=== PATIENT | male | born 1955 | race Caucasian/White ===

== ENCOUNTER 2020-06-08 11:02 | Observation (INO) | payer MEDICARE ==
[~2020-06-08 11:02] MED LIST: ASPI-1111 PO; ATOR40TA28 PO; BUME1TAB34 PO; CARV25 PO; CLOP75TA60 PO; LOSA50TA37 PO; METF-960 PO; NIFE30TA98 PO; SODIUM CHLORIDE 0.9% 1,000 ML IV ONE; SODIUM CHLORIDE 0.9% 1,000 ML ONE
[2020-06-08 12:00] LABS: GLUCOMETER DEV NAME(LOC) SDS.; GLUCOSE,POINT OF CARE 277 MG/DL (70-110)
[2020-06-08] MEDS ORDERED: LIDOCAINE/PF 1% 30 ML VIAL ONE ×2 (12:54→13:41)
[2020-06-08] MEDS ORDERED: SODIUM BICARBONATE 50 MEQ/50 ML VIAL ONE (12:54)
[2020-06-08] MEDS ORDERED: IOHEXOL 300 MG/ML 150 ML VIAL ONE (12:55)
[2020-06-08] MEDS ORDERED: HEPARIN SODIUM 1000 UNITS/NS 1,000 ML ONE (12:55)
[2020-06-08 13:19] VITALS: BP 169/79
[2020-06-08] MEDS ORDERED: FentaNYL CITRATE PF 100 MCG/2 ML VIAL ONE ×2 (13:30→14:12)
[2020-06-08] MEDS ORDERED: MIDAZOLAM HCL 2 MG/2 ML VIAL ONE (13:30)
[2020-06-08] MEDS ORDERED: FentaNYL CITRATE PF 100 MCG/2 ML VIAL IVP ONE ×2 (13:45)
[2020-06-08] MEDS ORDERED: MIDAZOLAM HCL 2 MG/2 ML VIAL IVP ONE (13:45)
[2020-06-08] MEDS ORDERED: IOHEXOL 300 MG/ML 150 ML VIAL IARTER ONE (13:45)
[2020-06-08] MEDS ORDERED: HEPARIN SODIUM 1000 UNITS/NS 1,000 ML IARTER ONE (13:45)
[2020-06-08] MEDS ORDERED: LIDOCAINE 1% 30 ML/SOD BICARB 8.4% 4 ML SQ ONE (13:45)
[2020-06-08] MEDS ORDERED: IOHEXOL 300 MG/ML 50 ML VIAL ONE (13:48)
[2020-06-08] MEDS ORDERED: IOHEXOL 300 MG/ML 100 ML VIAL ONE ×2 (13:48→14:30)
[2020-06-08] MEDS ORDERED: NITROGLYCERIN 50 MG/D5% WATER 0 ML ONE (13:48)
[2020-06-08] MEDS ORDERED: VERAPAMIL HCL 2.5 MG/ML 2 ML VIAL ONE (13:49)
[2020-06-08] MEDS ORDERED: HEPARIN SODIUM,PORCINE 5,000 UNITS/ML VIAL IVP ONE (14:00)
[2020-06-08] MEDS ORDERED: TICAGRELOR 90 MG TABLET ONE (14:09)
[2020-06-08] MEDS ORDERED: ASPIRIN 325 MG TABLET ONE (14:09)
[2020-06-08] MEDS ORDERED: NITROGLYCERIN 400 MCG/SUBLINGUAL SPRAY 4.9 GM BOTTLE SL ONE (14:14)
[2020-06-08] MEDS ORDERED: ASPIRIN 325 MG TABLET PO ONE (14:15)
[2020-06-08] MEDS ORDERED: TICAGRELOR 90 MG TABLET PO ONE (14:15)
[2020-06-08] MEDS ORDERED: NITROGLYCERIN 0.4 MG SUBLINGUAL TABLET #25 SL ONE (14:15)
[2020-06-08] MEDS ORDERED: IOHEXOL 300 MG/ML 100 ML VIAL IARTER ONE (14:15)
[2020-06-08 14:36] VITALS: BP 135/73
[2020-06-08] MEDS ORDERED: BISACODYL 10 MG RECTAL RECTAL SUPPOSITORY PR PRN (14:45)
[2020-06-08] MEDS ORDERED: ACETAMINOPHEN 325 MG TABLET PO PRN (14:45)
[2020-06-08] MEDS ORDERED: OxyCODONE HCL/ACETAMINOPHEN 5-325 MG TABLET PO PRN (14:45)
[2020-06-08] MEDS ORDERED: DEXTROSE 50%-WATER 25 GM/50 ML SYRINGE IVP PRN (14:45)
[2020-06-08 17:39] VITALS: BP 143/82
[2020-06-08] MEDS: INSULIN LISPRO 100 UNITS/ML SQ PRN ×2 (18:15→21:09)
[2020-06-08 20:39] VITALS: BP 139/65
[2020-06-08] MEDS: TICAGRELOR 90 MG TABLET PO SCH (20:58)
[2020-06-08] MEDS: DOCUSATE SODIUM 100 MG CAPSULE PO SCH (20:58)
[2020-06-08] MEDS: CARVEDILOL 25 MG TABLET PO SCH (20:58)
[2020-06-08] MEDS ORDERED: ATORVASTATIN CALCIUM 40 MG TABLET PO SCH (21:00)
[2020-06-08] MEDS ORDERED: TICAGRELOR 90 MG TABLET PO SCH (21:00)
[2020-06-09 00:30] VITALS: BP 128/62
[2020-06-09 05:36] VITALS: BP 121/55
[2020-06-09] MEDS: INSULIN LISPRO 100 UNITS/ML SQ PRN ×2 (06:14→11:07)
[2020-06-09 06:45] LABS: BASOPHILS % (AUTO) 0.6 % (0.0-2.0); EOSINOPHILS % (AUTO) 4.5 % (1.0-6.0); HEMATOCRIT 37.8 % (41-53); HEMOGLOBIN 12.5 g/dL (13.5-17.5); LYMPHOCYTES % (AUTO) 23.9 % (22.0-44.0); MEAN CORPUSCULAR HEMOGLOBIN 30.5 pg (26.0-34.0); MEAN CORPUSCULAR HGB CONC 33.2 G/dL (31.0-37.0); MEAN CORPUSCULAR VOLUME 92 fL (80-100); MONOCYTES # (AUTO) 0.8 K/uL (0.1-1.0); MONOCYTES % (AUTO) 9.2 % (2.0-9.0); NEUTROPHILS # (AUTO) 5.1 K/uL (1.8-7.7); NEUTROPHILS % (AUTO) 61.8 % (40.0-70.0); PLATELET COUNT (AUTO) 187 K/uL (150-450); RED BLOOD CELL COUNT(AUTO) 4.11 MIL/uL (4.50-5.90); RED CELL DISTRIBUTION WIDTH 14.5 % (11.5-14.5)
[2020-06-09 06:52] LABS: ALANINE AMINOTRANSFERASE 27 U/L (12-78); ALKALINE PHOSPHATASE 70 U/L (46-116); ANION GAP 8 mmol/L (8-16); ASPARTATE AMINOTRANSFERASE 18 U/L (15-37); BILIRUBIN,TOTAL 0.5 mg/dL (0.1-1.0); CALCIUM, TOTAL 8.7 mg/dL (8.8-10.5); CARBON DIOXIDE 27 mmol/L (22-29); CHLORIDE 108 mmol/L (98-107); CREATININE 0.86 mg/dL (0.60-1.30); GLOMERULAR FILTR. RATE CALC > 60 mL/min (>60); GLUCOSE,RANDOM 228 mg/dL (70-110); SODIUM SERUM 143 mmol/L (136-145); TOTAL PROTEIN, SERUM 5.9 g/dL (6.4-8.2); UREA NITROGEN, BLOOD 16 mg/dL (7-18)
[2020-06-09 07:20] VITALS: BP 135/70
[2020-06-09] MEDS: TICAGRELOR 90 MG TABLET PO SCH (07:54)
[2020-06-09] MEDS: CARVEDILOL 25 MG TABLET PO SCH (07:54)
[2020-06-09] MEDS: DOCUSATE SODIUM 100 MG CAPSULE PO SCH (07:54)
[2020-06-09] MEDS ORDERED: ASPIRIN 81 MG CHEWABLE TABLET PO SCH ×2 (09:00)
[2020-06-09] MEDS ORDERED: FAMOTIDINE 20 MG TABLET PO SCH (09:00)
[2020-06-09 12:11] VITALS: BP 124/62
[2020-06-10 20:53] LABS: GLUCOMETER DEV NAME(LOC) 5S.1; GLUCOSE,POINT OF CARE 207 MG/DL (70-110)
[2020-06-10 20:53] LABS: GLUCOMETER DEV NAME(LOC) 5S.1; GLUCOSE,POINT OF CARE 329 MG/DL (70-110)
[2020-06-11 12:09] LABS: GLUCOMETER DEV NAME(LOC) 5S.2B; GLUCOSE,POINT OF CARE 270 MG/DL (70-110)
[2020-06-11 12:09] LABS: GLUCOMETER DEV NAME(LOC) 5S.2B; GLUCOSE,POINT OF CARE 301 MG/DL (70-110)
== END 2020-06-09 12:45 | disposition home or self-care (01) ==
LOC: CATHLAB 11:02 → INTOOBSV 17:36 → 5S 17:36
PROVIDERS: ADMIT Internal Medicine; ATTEND Internal Medicine
DX: T82.855A Stenosis of coronary artery stent, initial encounter (principal); I25.110 Atherosclerotic heart disease of native coronary artery with unstable angina pectoris; Y83.1 Surgical operation with implant of artificial internal device as the cause of abnormal reaction of the patient, or of later complication, without mention of misadventure at the time of the procedure; I11.9 Hypertensive heart disease without heart failure; E78.5 Hyperlipidemia, unspecified; E66.01 Morbid (severe) obesity due to excess calories; E44.0 Moderate protein-calorie malnutrition; Z68.42 Body mass index [BMI] 45.0-49.9, adult; Z79.82 Long term (current) use of aspirin; Z79.84 Long term (current) use of oral hypoglycemic drugs
CPT/HCPCS: 36415; 80053; 82962 ×2; 85025; 87081; 92920; 92928; 93005; 93458; 96360; 96361; 96372 ×2; 99219 ×2; C1769; C1874; C1887; J1644; J2250; J3010; J3490 ×2; J7030; Q9967 ×2; Z7610